=== PATIENT | female | born 1990 | race Caucasian/White ===

== ENCOUNTER → 2017-06-25 | Outpatient (CLI) | payer OTHER ==
[~2017-06-25] MED LIST: BCPILLS PO
--- NOTE | 2017-06-29 10:10 | PULMONARY FUNCTION TEST ---
Spirometry and flow volume loop normal.
== END | disposition home or self-care (01) ==
LOC: C.RC 09:34
PROVIDERS: ATTEND Family Medicine
DX: R06.00 Dyspnea, unspecified (principal)